=== PATIENT | male | born 1970 | race African-American/Black ===

== ENCOUNTER 2017-02-18 13:38 | Emergency (ER) | payer OTHER ==
[~2017-02-18] VITALS: Ht 177.8 cm; Wt 107.0 kg
[2017-02-18 17:12] VITALS: BP 139/80
== END 2017-02-18 17:15 | disposition home or self-care (01) ==
LOC: ER 15:04
DX: S50.02XA Contusion of left elbow, initial encounter (principal); G40.909 Epilepsy, unspecified, not intractable, without status epilepticus; Z88.0 Allergy status to penicillin; W06.XXXA Fall from bed, initial encounter; Y93.89 Activity, other specified; Y92.018 Other place in single-family (private) house as the place of occurrence of the external cause
CPT/HCPCS: 73080; 99284; Z7610

== ENCOUNTER 2017-10-27 08:08 | Emergency (ER) | payer OTHER ==
[~2017-10-27] VITALS: Ht 177.8 cm; Wt 108.0 kg
[2017-10-27 10:27] LABS: BASOPHILS % 0.9 % (0.0-2.0); EOSINOPHILS % 2.3 % (0.0-5.0); HEMATOCRIT. 40.5 % (42.0-52.0); HEMOGLOBIN. 13.6 g/dL (14.0-18.0); LYMPHOCYTES % 34.8 % (20.0-50.0); MEAN CORPUSCULAR HEMOGLOBIN 29.4 pg (28.0-32.0); PLATELET 202 x1000/uL (130-400); RED BLOOD CELL COUNT 4.61 mill/uL (4.7-6.1); RED CELL DISTRIBUTION WIDTH 13.7 % (11.6-14.6)
[2017-10-27 10:31] LABS: CHLORIDE 106 mEq/L (98-107)
[2017-10-27 10:59] LABS: CLARITY URINE CLEAR (CLEAR); COLOR URINE YELLOW (YELLOW); KETONES URINE NEGATIVE (NEGATIVE); LEUKOCYTE ESTERASE URINE NEGATIVE (NEGATIVE); NITRITE URINE NEGATIVE (NEGATIVE); OCCULT BLOOD URINE NEGATIVE (NEGATIVE); PH URINE 5.5 (4.5-8.0); PROTEIN URINE 1+ (NEGATIVE); UROBILINOGEN URINE 0.2 E.U./dL (0.2-1.0)
[2017-10-27 12:23] VITALS: BP 130/87
== END 2017-10-27 12:14 | disposition home or self-care (01) ==
LOC: ER 09:02
DX: R60.0 Localized edema (principal); I10 Essential (primary) hypertension; F17.210 Nicotine dependence, cigarettes, uncomplicated
CPT/HCPCS: 36415; 80053; 81003; 83880; 85025; 93970; 99285; Z7610

== ENCOUNTER 2019-01-15 06:08 | Emergency (ER) | payer OTHER ==
[~2019-01-15] VITALS: Ht 175.3 cm; Wt 107.0 kg
[2019-01-15] MEDS ORDERED: ONDANSETRON HCL 4MG/2ML INJ IV STA (06:35)
[2019-01-15] MEDS ORDERED: MORPHINE SULFATE 4 MG/ML CPJ (NOT FOR IM USE) IV STA (06:35)
[2019-01-15] MEDS ORDERED: SODIUM CHLORIDE 0.9% 1,000 ML IV ONE (06:35)
[2019-01-15] MEDS ORDERED: TETANUS, DIPHTHERIA, PERTUSSIS VAC/PF 0.5ML (>7YR OLD) IM ONE (06:45)
[2019-01-15] MEDS ORDERED: LEVOFLOXACIN 500MG PREMIX 100 ML IV ONE (07:00)
[2019-01-15 07:31] LABS: PARTIAL THROMBOPLASTIN TIME 28.4 sec (23.4-31.0); PROTHROMBIN TIME 10.4 sec (9.6-11.0)
[2019-01-15 07:32] LABS: EOSINOPHILS % 3.5 % (0.0-5.0); HEMOGLOBIN. 13.3 g/dL (14.0-18.0); LYMPHOCYTES % 27.4 % (20.0-50.0); MEAN CORPUSCULAR VOLUME 90.4 fL (80.0-94.0); MEAN PLATELET VOLUME 9.1 fl (7.4-10.4); MONOCYTES % 10.2 % (2.0-8.0); NEUTROPHILS % 57.9 % (40.0-76.0); PLATELET 182 x1000/uL (130-400); RED BLOOD CELL COUNT 4.42 mill/uL (4.7-6.1); RED CELL DISTRIBUTION WIDTH 13.5 % (11.6-14.6)
[2019-01-15 07:35] LABS: CHLORIDE 107 mEq/L (98-107)
[2019-01-15] MEDS ORDERED: LIDOCAINE HCL/PF 1% 10 MG/ML 5ML VIAL IJ ONE (07:45)
[2019-01-15] MEDS ORDERED: BACITRACIN ZINC OINT UDPKT TOP ONE (07:45)
[2019-01-15] MEDS ORDERED: BACITRACIN 15GM TUBE TOP SCH (08:15)
[2019-01-15 10:18] VITALS: BP 148/68
== END 2019-01-15 10:23 | disposition home or self-care (01) ==
LOC: ER 06:08
DX: S63.252A Unspecified dislocation of right middle finger, initial encounter (principal); S61.212A Laceration without foreign body of right middle finger without damage to nail, initial encounter; W18.39XA Other fall on same level, initial encounter; Y93.89 Activity, other specified; Y92.89 Other specified places as the place of occurrence of the external cause; Y99.8 Other external cause status; X58.XXXA Exposure to other specified factors, initial encounter; F17.200 Nicotine dependence, unspecified, uncomplicated; Z88.0 Allergy status to penicillin
CPT/HCPCS: 12002; 36415; 73140; 80048; 85025; 85610; 85730; 90471; 90715; 96365; 96375; 99284; 99406; J1956; J2270; J2405; J3490; J7030; Z7610